=== PATIENT | male | born 2000 | race American Indian/Alaskan Native ===

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

== ENCOUNTER 2022-10-18 23:06 | Inpatient (IN) | payer BC, OTHER ==
--- NOTE | 2022-10-18 23:31 | ED ---
General Adult HPI - General Chief complaint: Psychiatric Symptoms Stated complaint: MENTAL HEALTH Time Seen by Provider: 10/18/22 23:16 Source: EMS Mode of arrival: EMS Limitations: no limitations - History of Present Illness Initial comments: Dictation was produced using [employer] dictation software. please excuse any grammatical, word or spelling errors. Chief Complaint: 21-year-old female presents with suicidal ideation History of Present Illness: 21-year-old male he is seeking treatment for suicidal ideation. He recently had a breakup. Patient apparently had a firearm in his mouth. She states that the firearm belong to his father. The ROS documented in this emergency department record has been reviewed and confirmed by me. Those systems with pertinent positive or negative responses have been documented in the HPI. All other systems are other negative and/or noncontributory. - Related Data Previous Rx's Medication Instructions Recorded Bacitracin Zinc/Polymyxin B 1 applic TOPICAL DAILY #15 gm 06/12/22 [Bacitracin-Polymyxin Ointment] Allergies Allergy/AdvReac Type Severity Reaction Status Date / Time No Known Allergies Allergy Verified 06/12/22 22:36 Review of Systems ROS Statement: Those systems with pertinent positive or pertinent negative responses have been documented in the HPI. ROS Other: All systems not noted in ROS Statement are negative. Past Medical History Past Medical History: No Reported History Additional Past Medical History / Comment(s): sciatica History of Any Multi-Drug Resistant Organisms: None Reported Past Surgical History: No Surgical Hx Reported Past Psychological History: No Psychological Hx Reported Smoking Status: Never smoker Past Alcohol Use History: None Reported Past Drug Use History: None Reported General Exam - General Exam Comments Initial Comments: PHYSICAL EXAM: General Impression: Alert and oriented x3, not in acute distress HEENT: Normocephalic atraumatic, extra-ocular movements intact, pupils equal and reactive to light bilaterally, mucous membranes moist. Cardiovascular: Heart regular rate and rhythm Chest: Able to complete full sentences, no retractions, no tachypnea Abdomen: abdomen soft, non-tender, non-distended, no organomegaly Musculoskeletal: Pulses present and equal in all extremities, no peripheral edema Motor: no focal deficits noted Neurological: CN II-XII grossly intact, no focal motor or sensory deficits noted Skin: Intact with no visualized rashes Psych: Tearful Limitations: no limitations Course Vital Signs 10/18/22 23:08 Temperature 98.7 F Pulse Rate 98 Respiratory 20 Rate Blood Pressure 145/86 O2 Sat by Pulse 99 Oximetry Medical Decision Making - Medical Decision Making Was pt. sent in by a medical professional or institution (, [facility], [employer]ISSIONER, urgent care, hospital, or skilled nursing...) When possible be specific @ -No Did you speak to anyone other than the patient for history (EMS, parent, family, police, friend...)? What history was obtained from this source @ -No Did you review nursing and triage notes (agree or disagree)? Why? @ -I reviewed and agree with nursing and triage notes Were old charts reviewed (outside hosp., previous admission, EMS record, old EKG, old radiological studies, urgent care reports/EKG's, skilled nursing records)? Report findings @ -No old charts were reviewed Differential Diagnosis (chest pain, altered mental status, abdominal pain women, abdominal pain men, vaginal bleeding, musculoskeletal, weakness, fever, dyspnea, syncope, headache, dizziness, GI bleed, back pain, seizure, CVA, palpatations, mental health)? @ -Differential Mental Health: Depression, anxiety, bipolar, psychosis, schizophrenia, borderline personality, situational depression, adjustment disorder, behavioral disorder, brain tumor, malingering, substance abuse, encephalopathy, medication reaction, dementia, hypothyroidism, degenerative neurologic disorder, lupus.... This is not meant to be all-inclusive list EKG interpreted by me (3pts min.). @ -None done X-rays interpreted by me (1pt min.). @ -None done CT interpreted by me (1pt min.). @ -None done U/S interpreted by me (1pt. min.). @ -None done What testing was considered but not performed or refused? (CT, X-rays, U/S, labs)? Why? @ -None What meds were considered but not given or refused? Why? @ -None Did you discuss the management of the patient with other professionals (professionals i.e. SARAH Garibay, [employer] COMMISSIONER, lab, RT, psych nurse, social media marketing specialist, hide and skin fleshing machine operator, teacher, agricultural technical officer, immigration case worker)? Give summary @ -No Was smoking cessation discussed for >3mins.? @ -No Was critical care preformed (if so, how long)? @ -No Were there social determinants of health that impacted care today? How? (Homelessness, low income, unemployed, alcoholism, drug addiction, transportation, low edu. Level, literacy, decrease access to med. care, fci, rehab)? @ -No Was there de-escalation of care discussed even if they declined (Discuss DNR or withdrawal of care, Hospice)? DNR status @ -No What co-morbidities impacted this encounter? (DM, HTN, Smoking, COPD, CAD, Cancer, CVA, ARF, Chemo, Hep., AIDS, mental health diagnosis, sleep apnea, morbid obesity)? @ -None Was patient admitted / discharged? Hospital course, mention meds given and route, prescriptions, significant lab abnormalities, going to OR and other pertinent info. @ -21-year-old male presents to suicidal behavior. Vital signs stable. Patient has no medical complaints. Patient evaluated by emergency psych services will be admitted to inpatient psych Undiagnosed new problem with uncertain prognosis? @ -No Drug Therapy requiring intensive monitoring for toxicity (Heparin, Nitro, Insulin, Cardizem)? @ -No Were any procedures done? @ -No Diagnosis/symptom? Acute, or Chronic, or Acute on Chronic? Uncomplicated (without systemic symptoms) or Complicated (systemic symptoms)? @ -1. Suicidal behavior Side effects of treatment? @ -No Exacerbation, Progression, or Severe Exacerbation? @ -No Poses a threat to life or bodily function? How? (Chest pain, USA, ME, pneumonia, PE, COPD, DKA, ARF, appy, cholecystitis, CVA, Diverticulitis, Homicidal, Suicidal, threat to staff... and all critical care pts) @ -yes Disposition Clinical Impression: Suicidal behavior Disposition: ADMITTED IP TO THIS HOSP Condition: Serious Referrals: Sigifredo Arteaga MD [Primary Care Provider] - 1-2 days Decision Time: 01:32
[2022-10-19] MEDS ORDERED: ACETAMINOPHEN TAB 325 MG TAB PO PRN (03:09)
[2022-10-19] MEDS ORDERED: MAG HYDROX/AL HYDROX/SIMETH 30 ML CUP PO PRN (03:09)
[2022-10-19] MEDS ORDERED: hydrOXYzine HCL 25 MG TAB PO PRN (03:09)
[2022-10-19] MEDS ORDERED: hydrOXYzine HCL 50 MG/ML 1 ML VIAL IM PRN (03:09)
[2022-10-19] MEDS ORDERED: MAGNESIUM HYDROXIDE 2,400 MG/30 ML CUP PO PRN (03:09)
[2022-10-19] MEDS ORDERED: IBUPROFEN 600 MG TAB PO PRN (03:09)
[2022-10-19] MEDS ORDERED: OLANZapine 5 MG TAB PO PRN (03:09)
[2022-10-19] MEDS ORDERED: OLANZapine 10 MG VIAL IM PRN (03:16)
[2022-10-19 07:10] LABS: Basophils # (A) 0.1 k/uL (0-0.2); Basophils % (A) 1 %; Eosinophils # (A) 0.1 k/uL (0-0.7); Eosinophils % (A) 1 %; HCT 46.6 % (39.0-53.0); HGB 15.9 gm/dL (13.0-17.5); Lymphocytes # (A) 1.5 k/uL (1.0-4.8); Lymphocytes % (A) 20 %; MCH 30.3 pg (25.0-35.0); MCV 89.1 fL (80.0-100.0); Mean Platelet Volume 8.7; Monocytes # (A) 0.4 k/uL (0-1.0); Monocytes % (A) 6 %; Neutrophils # (A) 5.3 k/uL (1.3-7.7); Neutrophils % (A) 71 %; Platelet Count 221 k/uL (150-450); RBC 5.23 m/uL (4.30-5.90); RDW 12.8 % (11.5-15.5); WBC 7.5 k/uL (4.0-11.0)
[2022-10-19 08:08] LABS: ALT 24 U/L (4-49); AST 35 U/L (17-59); African American GFR (CKD) >90 (>60 ml/min/1.73 sqM); Albumin 4.5 g/dL (3.5-5.0); Alkaline Phosphatase 60 U/L (38-126); Anion Gap 10 mmol/L; Blood Urea Nitrogen 14 mg/dL (9-20); Calcium 9.2 mg/dL (8.4-10.2); Carbon Dioxide 23 mmol/L (22-30); Chloride 105 mmol/L (98-107); Glucose 94 mg/dL (74-99); Non-African American GFR(CKD) >90 (>60 ml/min/1.73 sqM); Potassium 4.3 mmol/L (3.5-5.1); Sodium 138 mmol/L (137-145); Total Bilirubin 1.2 mg/dL (0.2-1.3); Total Protein 7.1 g/dL (6.3-8.2)
[2022-10-19] MEDS ORDERED: NICOTINE 14MG/24HR PATCH TRANSDERM SCH (09:00)
--- NOTE | 2022-10-19 10:39 | P.HP ---
Psychiatric H&P - . H&P Date: 10/19/22 History & Physical: Allergies Allergy/AdvReac Type Severity Reaction Status Date / Time No Known Allergies Allergy Verified 06/12/22 22:36 Vital Signs Temp 98.7 F 10/19/22 04:37 Pulse 71 10/19/22 04:37 Resp 20 10/19/22 04:37 BP 125/56 10/19/22 04:37 Pulse Ox 99 10/18/22 23:08 FiO2 Intake & Output 10/18/22 10/19/22 10/19/22 18:59 06:59 18:59 Weight 78.7 kg Laboratory Last Values WBC 7.5 k/uL (4.0-11.0) 10/19/22 06:39 RBC 5.23 m/uL (4.30-5.90) 10/19/22 06:39 Hgb 15.9 gm/dL (13.0-17.5) 10/19/22 06:39 Hct 46.6 % (39.0-53.0) 10/19/22 06:39 MCV 89.1 fL (80.0-100.0) 10/19/22 06:39 MCH 30.3 pg (25.0-35.0) 10/19/22 06:39 MCHC 34.0 g/dL (31.0-37.0) 10/19/22 06:39 RDW 12.8 % (11.5-15.5) 10/19/22 06:39 Plt Count 221 k/uL (150-450) 10/19/22 06:39 MPV 8.7 10/19/22 06:39 Neutrophils % 71 % 10/19/22 06:39 Lymphocytes % 20 % 10/19/22 06:39 Monocytes % 6 % 10/19/22 06:39 Eosinophils % 1 % 10/19/22 06:39 Basophils % 1 % 10/19/22 06:39 Neutrophils # 5.3 k/uL (1.3-7.7) 10/19/22 06:39 Lymphocytes # 1.5 k/uL (1.0-4.8) 10/19/22 06:39 Monocytes # 0.4 k/uL (0-1.0) 10/19/22 06:39 Eosinophils # 0.1 k/uL (0-0.7) 10/19/22 06:39 Basophils # 0.1 k/uL (0-0.2) 10/19/22 06:39 Sodium 138 mmol/L (137-145) 10/19/22 06:39 Potassium 4.3 mmol/L (3.5-5.1) 10/19/22 06:39 Chloride 105 mmol/L (98-107) 10/19/22 06:39 Carbon Dioxide 23 mmol/L (22-30) 10/19/22 06:39 Anion Gap 10 mmol/L 10/19/22 06:39 BUN 14 mg/dL (9-20) 10/19/22 06:39 Creatinine 1.02 mg/dL (0.66-1.25) 10/19/22 06:39 Est GFR (CKD-EPI)AfAm >90 (>60 ml/min/1.73 sqM) 10/19/22 06:39 Est GFR (CKD-EPI)NonAf >90 (>60 ml/min/1.73 sqM) 10/19/22 06:39 Glucose 94 mg/dL (74-99) 10/19/22 06:39 Calcium 9.2 mg/dL (8.4-10.2) 10/19/22 06:39 Total Bilirubin 1.2 mg/dL (0.2-1.3) 10/19/22 06:39 AST 35 U/L (17-59) 10/19/22 06:39 ALT 24 U/L (4-49) 10/19/22 06:39 Alkaline Phosphatase 60 U/L (38-126) 10/19/22 06:39 Total Protein 7.1 g/dL (6.3-8.2) 10/19/22 06:39 Albumin 4.5 g/dL (3.5-5.0) 10/19/22 06:39 TSH 2.210 mIU/L (0.465-4.680) 10/19/22 06:39 Coronavirus (PCR) Not Detected (Not Detectd) 10/19/22 00:00 10/19/22 09:24 IDENTIFYING DATA: Patient is a single, employed, 21-year-old male who is presenting with suicidal ideation HPI: Patient was brought into the ED after having been petitioned by a coworker at [facility]. The petition states "I was called by his father that he may be at home trying to harm himself. Upon arrival through the window I saw the patient with gun in his mouth". Per EPS report, stressor included breakup with his girlfriend whom he states has been with someone else. While in the ED, patient reported "I was suicidal tonight and took a gun and put it in my mouth." Patient currently reports having been in a relationship with his girlfriend Elaina for the past one and half years. He states that over the past month, their relationship has been having issues. He says that the father of his girlfriend told the patient to stay away from [place] otherwise that he would contact the fire department to fire the patient from work. Iron says that he has been worried for the past 1 month about the status of the relationship. He says that he has been making attempts to gain her back but he learned last night that she was romantically involved with someone else. He said he wanted to hear from her that she does not love him anymore. As a result, he states that he put a gun in his mouth while on video call with her. He believes that she informed his parents about his actions which resulted in the coworkers checking on him. He says that the safety was on on the gun and says that it was not loaded. He now says that this was an attempt to gain her attention and says that he was not truly intending to kill himself. He says that the gun belongs to his father and he knew how to gain access. He admits to having drank "a little bit "prior to putting the gun in his mouth. Patient currently minimizing his actions and stating that this was done on an impulse. He reports drinking rarely and denies excessive or habitual consumption of alcohol. Patient endorses worrying often about other things. However, this has worsened due to the relationship issues over the past one month. He reports feeling restless, on edge, and anxious. He denies depression and low mood. He reports fair energy and good appetite. He says that he had some trouble falling asleep over the past one-week but otherwise denies issues with sleep. He denies symptoms consistent with a constellation of symptoms of bj. He denies auditory and visual hallucinations, as asked and assessed. He currently denies suicidal ideation and homicidal ideation. PSYCH HX: Therapist: [facility] Past tx: Denies Hospitalizations: Denies NSSI: Denies SA: Denies PMH: Denies chronic medical issues ALLERGIES: NKDA PCP: Dr. Arteaga Head injuries: Denies Seizures: Denies SUBSTANCE HX: Alcohol: Rare 1 coffee daily Denies using other substances SOCIAL/LEGAL HX: He was [place] in [place]. He likes to exercise. His father is a hrbp. He has 1 older brother and 1 sister. 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 Patient appears to have fair hygiene and grooming. Behavior: Patient is seated without any agitated behavior. Speech: Patient's speech is fluent and nonpressured. Mood/Affect: Patient reports their mood is depressed, affect is congruent and tearful Suicidality/Homicidality: Patient denies having any homicidal ideation intent or plan. Denies any suicidal ideations intent or plan Perceptions: Patient denies any visual hallucinations and denies any auditory hallucinations Though content/process: There is no evidence of any delusional thought content and thought process is linear and goal-directed. Memory and concentration: AOX3, grossly intact for the purposes of this session. Can spell "WORLD" backwards Judgment and insight: Poor, impulsive STRENGTHS/WEAKNESSES: Strength is family support. Weakness is emotional reactivity. 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 Patient signed adult voluntary form and medication consent and is placed in patient's chart. -Medications: Discussed medication with patient but patient is currently stating that he does not want to be on any medication because he does not believe in it. We will provide information on Zoloft and Prozac and discuss it further tomorrow -Internal Medicine consult to perform medical evaluation and physical. -SW on board for discharge planning. Encourage patient to participate in groups to work on coping skills. 10/19/22 10:11 10/19/22 10:23
--- NOTE | 2022-10-19 12:18 | P.CONS ---
History of Present Illness - Reason for Consult Medical clearance - History of Present Illness Patient is admitted for suicidal ideation patient denied any medical complaints at this time. REVIEW OF SYSTEMS: CONSTITUTIONAL: No fever, no malaise, no fatigue. HEENT: No recent visual problems or hearing problems. Denied any sore throat. CARDIOVASCULAR: No chest pain, orthopnea, PND, no palpitations, no syncope. PULMONARY: No shortness of breath, no cough, no hemoptysis. GASTROINTESTINAL: No diarrhea, no nausea, no vomiting, no abdominal pain. NEUROLOGICAL: No headaches, no weakness, no numbness. HEMATOLOGICAL: Denies any bleeding or petechiae. GENITOURINARY: Denies any burning micturition, frequency, or urgency. MUSCULOSKELETAL/RHEUMATOLOGICAL: Denies any joint pain, swelling, or any muscle pain. ENDOCRINE: Denies any polyuria or polydipsia. The rest of the 14-point review of systems is negative. PHYSICAL EXAMINATION: GENERAL: The patient is alert and oriented x3, not in any acute distress. Well developed, well nourished. HEENT: Pupils are round and equally reacting to light. EOMI. No scleral icterus. No conjunctival pallor. Normocephalic, atraumatic. No pharyngeal erythema. No thyromegaly. CARDIOVASCULAR: S1 and S2 present. No murmurs, rubs, or gallops. PULMONARY: Chest is clear to auscultation, no wheezing or crackles. ABDOMEN: Soft, nontender, nondistended, normoactive bowel sounds. No palpable organomegaly. MUSCULOSKELETAL: No joint swelling or deformity. EXTREMITIES: No cyanosis, clubbing, or pedal edema. NEUROLOGICAL: Gross neurological examination did not reveal any focal deficits. SKIN: No rashes. Assessment and plan -Depression, suicidal ideation: Management as per primary service -Patient doesn't have any medical problems at this time. Patient is medically stable to stay and psychiatry unit DVT prophylaxis: Past Medical History Past Medical History: No Reported History Additional Past Medical History / Comment(s): sciatica History of Any Multi-Drug Resistant Organisms: None Reported Past Surgical History: No Surgical Hx Reported Past Psychological History: No Psychological Hx Reported Smoking Status: Never smoker Past Alcohol Use History: None Reported Past Drug Use History: None Reported Medications and Allergies Home Medications Medication Instructions Recorded Confirmed Type Bacitracin Zinc/Polymyxin B 1 applic TOPICAL DAILY #15 gm 06/12/22 Rx [Bacitracin-Polymyxin Ointment] Allergies Allergy/AdvReac Type Severity Reaction Status Date / Time No Known Allergies Allergy Verified 06/12/22 22:36 Physical Exam Vitals: Vital Signs Temp Pulse Pulse Resp BP BP Pulse Ox 10/19/22 04:37 98.7 F 71 20 125/56 10/18/22 23:08 98.7 F 98 20 145/86 99 Intake and Output 10/18/22 10/19/22 10/19/22 22:59 06:59 14:59 Other: Weight 78.7 kg Results CBC & Chem 7: 10/19/22 06:39 10/19/22 06:39
[2022-10-19 13:42] LABS: Chol/HDL Ratio 2.17 Ratio; LDL Cholesterol,Calculated 49.1 mg/dL (0.0-131.0)
[2022-10-19 15:55] VITALS: BMI 25.6
[2022-10-20 07:18] VITALS: BP 113/71; PULSE 47; RESP 16; TEMP 97.9
--- NOTE | 2022-10-20 16:07 | P.PN ---
Progress Note - Text Progress Note Date: 10/20/22 Interval History: Patient was seen wandering the hallways and was directable and agreeable to sp kennedy with entry writer in the office. Patient continues to assert that he does not want to be on any medications. However, he says that he spoke with his assistant grocery store manager who came to visit which was helpful. He expresses remorse towards his action and reflects that it was a poor decision. However, patient is noted to be easily frustrated but does not appear to have insight into this. Discussed various options with patient is currently not amenable with any medication. However, he plans [facility]. He says that he just wants to go home to his mother who will be returning home soon. He also states that his father should be home in the next day or so and will be locking up the guns. At this time patient denies any suicidal or homicidal ideation, intent or plan. Patient denies any auditory, visual hallucinations and denies any paranoia or delusions. Patient denies any side effects from the medications and has been compliant with meds. Mental Status Exam: General Appearance: Patient appears to be stated age is alert, directable, and attempts to cooperate. Patient appears to have fair hygiene and grooming. Behavior: Patient is seated without any agitated behavior. Speech: Patient's speech is fluent and nonpressured. Mood/Affect: Patient reports their mood is depressed, affect is congruent Suicidality/Homicidality: Patient denies having any homicidal ideation intent or plan. Denies any suicidal ideations intent or plan Perceptions: Patient denies any visual hallucinations and denies any auditory hallucinations Though content/process: There is no evidence of any delusional thought content and thought process is linear and goal-directed. Memory and concentration: AOX3, grossly intact for the purposes of this session. Can spell "WORLD" backwards Judgment and insight: Improving, impulsive Assessment Adjustment disorder with anxiety Cluster B traits PLAN: -Patient is admitted under voluntary status to MHU for stabilization of psychiatric symptoms and safety. Patient signed adult voluntary form and medication consent and is placed in patient's chart. -Medications: Discussed medication with patient but patient is currently stating that he does not want to be on any medication because he does not believe in it. We will provide information on Zoloft and Prozac and discuss it further tomorrow -Internal Medicine consult to perform medical evaluation and physical. -SW on board for discharge planning. Encourage patient to participate in groups to work on coping skills. Will need the guns to be locked away prior to discharge.
--- NOTE | 2022-10-21 13:01 | P.DS ---
Providers Date of admission: 10/19/22 03:06 Expected date of discharge: 10/21/22 Attending physician: Van Ordaz MD Consults: 10/19/22 22:33 Consult Physician Routine Consulting Provider: Sun Baxter Consult Reason/Comments: h & P medical managment Do you want consulting provider notified?: Already Contacted Primary care physician: Sigifredo Arteaga - Discharge Diagnosis(es) (1) Adjustment disorder with mixed anxiety and depressed mood Current Visit: Yes Status: Acute Priority: High (2) Cluster B personality disorder Current Visit: Yes Status: Acute Priority: High Hospital Course: Admission HPI: Admission note was completed by Dr Clemons "Patient is a single, employed, 21-year-old male who is presenting with suicidal ideation. Patient was brought into the ED after having been petitioned by a coworker at [facility]. The petition states "I was called by his father that he may be at home trying to harm himself. Upon arrival through the window I saw the patient with gun in his mouth". Per EPS report, stressor included breakup with his girlfriend whom he states has been with someone else. While in the ED, patient reported "I was suicidal tonight and took a gun and put it in my mouth." Patient currently reports having been in a relationship with his girlfriend Elaina for the past one and half years. He states that over the past month, their relationship has been having issues. He says that the father of his girlfriend told the patient to stay away from [place] otherwise that he would contact the fire department to fire the patient from work. Iron says that he has been worried for the past 1 month about the status of the relationship. He says that he has been making attempts to gain her back but he learned last night that she was romantically involved with someone else. He said he wanted to hear from her that she does not love him anymore. As a result, he states that he put a gun in his mouth while on video call with her. He believes that she informed his parents about his actions which resulted in the coworkers checking on him. He says that the safety was on on the gun and says that it was not loaded. He now says that this was an attempt to gain her attention and says that he was not truly intending to kill himself. He says that the gun belongs to his father and he knew how to gain access. He admits to having drank "a little bit "prior to putting the gun in his mouth. Patient currently minimizing his actions and stating that this was done on an impulse. He reports drinking rarely and denies excessive or habitual consumption of alcohol. Patient endorses worrying often about other things. However, this has worsened due to the relationship issues over the past one month. He reports feeling restless, on edge, and anxious. He denies depression and low mood. He reports fair energy and good appetite. He says that he had some trouble falling asleep over the past one-week but otherwise denies issues with sleep. He denies symptoms consistent with a constellation of symptoms of jb. He denies auditory and visual hallucinations, as asked and assessed. He currently denies suicidal ideation and homicidal ideation." Hospital course: Upon admission to the unit patient was directable and agreeable to commence treatment and signed adult voluntary form . Patient got along well with other patients on the unit and followed unit protocol. Patient was fairly adamant about not starting any kind of medications and was offered several different options. She claims repeatedly that he would prefer to do outpatient counseling instead and was enjoyed participating in groups. Patient spoke of his stressors and engaged in therapy both group and individual. Patient was also seen by medical team for history and physical exam. Throughout the course of the hospitalization patient gradually improved with regards to mood, anxiety, sleep and became more future oriented with improved insight and judgment. On the day of discharge patient denied any suicidal or homicidal ideations intent or plan denied any auditory or visual hallucinations. Patient endorsed wanting to live for his future and for God. The patient denied any access to guns or weapons and claims that they are locked away. Patient denied any paranoia and did not endorse any delusions. Patient does not have a significant history of substance abuse and was counseled on abstaining from all substances including alcohol and marijuana. Prior to discharge a family meeting will be arranged by social ondina mcgrath to answer any questions and ensure safety upon discharge. Senior Financial Consultant also spoke with patient's mother over the phone [place] to confirm that the home environment is safe now, the guns are locked away and he does not have access to them, no other weapons or in the house. She states that is a supportive environment for him and she will try to get him into counseling and will pick him up today. Mental status exam: General Appearance: Patient appears to be well built, shaved head, stated age is alert, pleasant, and cooperative. Patient is in no acute distress and has improved hygiene and grooming Behavior: Patient is calmly seated without any agitated behavior. Speech: Patient's speech is fluent and nonpressured. Mood/Affect: Patient reports their mood is "good", affect is congruent Suicidality/Homicidality: Patient denies having any suicidal or homicidal ideation intent or plan. Perceptions: Patient denies any auditory or visual hallucinations. Though content/process: There is no evidence of any delusional thought content and thought process is linear and goal-directed. more future oriented Memory and concentration: AOX3, grossly intact for the purposes of this session. Can spell "WORLD" backwards correctly. Judgment and insight: improved with guarded prognosis Impression: Adjustment disorder with mixed depressed mood and anxiety Cluster B personality disorder Plan: -Continue with discharge today as patient has improved and stabilized psychiatrically and is not currently an imminent threat to himself and/or others. -Continue medications: Patient adamantly declined any medications and given multiple options for treatment. Patient claims that he preferred to do outpatient counseling instead. -Patient was counseled on the need for medication compliance and appropriate follow-up at mental health and also primary care for medical issues. Patient verbalized understanding and agreed. -Social work to arrange for and conduct family meeting to ensure safety upon di scharge and answer any questions/concerns. Senior Financial Consultant spoke with patient's mother over the phone as noted above. Social work also to arrange for patients follow up appointments for psychiatric care along with follow up with primary care provider. -Patient counseled on abstaining from recreational drugs and marijuana and alcohol. Was informed/educated on the adverse effects on their physical and ment al health. Patient verbally agreed and understood. -Patient was instructed to return to the hospital or seek immediate medical care if their psychiatric or medical symptoms do worsen or reoccur. Allergies Allergy/AdvReac Type Severity Reaction Status Date / Time No Known Allergies Allergy Verified 06/12/22 22:36 Laboratory Results WBC 7.5 k/uL (4.0-11.0) 10/19/22 06:39 RBC 5.23 m/uL (4.30-5.90) 10/19/22 06:39 Hgb 15.9 gm/dL (13.0-17.5) 10/19/22 06:39 Hct 46.6 % (39.0-53.0) 10/19/22 06:39 MCV 89.1 fL (80.0-100.0) 10/19/22 06:39 MCH 30.3 pg (25.0-35.0) 10/19/22 06:39 MCHC 34.0 g/dL (31.0-37.0) 10/19/22 06:39 RDW 12.8 % (11.5-15.5) 10/19/22 06:39 Plt Count 221 k/uL (150-450) 10/19/22 06:39 MPV 8.7 10/19/22 06:39 Neutrophils % 71 % 10/19/22 06:39 Lymphocytes % 20 % 10/19/22 06:39 Monocytes % 6 % 10/19/22 06:39 Eosinophils % 1 % 10/19/22 06:39 Basophils % 1 % 10/19/22 06:39 Neutrophils # 5.3 k/uL (1.3-7.7) 10/19/22 06:39 Lymphocytes # 1.5 k/uL (1.0-4.8) 10/19/22 06:39 Monocytes # 0.4 k/uL (0-1.0) 10/19/22 06:39 Eosinophils # 0.1 k/uL (0-0.7) 10/19/22 06:39 Basophils # 0.1 k/uL (0-0.2) 10/19/22 06:39 Sodium 138 mmol/L (137-145) 10/19/22 06:39 Potassium 4.3 mmol/L (3.5-5.1) 10/19/22 06:39 Chloride 105 mmol/L (98-107) 10/19/22 06:39 Carbon Dioxide 23 mmol/L (22-30) 10/19/22 06:39 Anion Gap 10 mmol/L 10/19/22 06:39 BUN 14 mg/dL (9-20) 10/19/22 06:39 Creatinine 1.02 mg/dL (0.66-1.25) 10/19/22 06:39 Est GFR (CKD-EPI)AfAm >90 (>60 ml/min/1.73 sqM) 10/19/22 06:39 Est GFR (CKD-EPI)NonAf >90 (>60 ml/min/1.73 sqM) 10/19/22 06:39 Glucose 94 mg/dL (74-99) 10/19/22 06:[address] Glu mg/dL 100 mg/dL 10/19/22 06:39 Hemoglobin A1c 5.1 % (<=6.0) 10/19/22 06:39 Calcium 9.2 mg/dL (8.4-10.2) 10/19/22 06:39 Total Bilirubin 1.2 mg/dL (0.2-1.3) 10/19/22 06:39 AST 35 U/L (17-59) 10/19/22 06:39 ALT 24 U/L (4-49) 10/19/22 06:39 Alkaline Phosphatase 60 U/L (38-126) 10/19/22 06:39 Total Protein 7.1 g/dL (6.3-8.2) 10/19/22 06:39 Albumin 4.5 g/dL (3.5-5.0) 10/19/22 06:39 Triglycerides 59.00 mg/dL (0.00-149.00) 10/19/22 06:39 Cholesterol 113.00 mg/dL (0.00-200.00) 10/19/22 06:39 LDL Cholesterol, Calc 49.1 mg/dL (0.0-131.0) 10/19/22 06:39 VLDL Cholesterol, Calc 11.80 mg/dL (5.00-40.00) 10/19/22 06:39 HDL Cholesterol 52.10 mg/dL (40.00-60.00) 10/19/22 06:39 Cholesterol/HDL Ratio 2.17 Ratio 10/19/22 06:39 TSH 2.210 mIU/L (0.465-4.680) 10/19/22 06:39 Coronavirus (PCR) Not Detected (Not Detectd) 10/19/22 00:00 Vital Signs Temp 97.9 F 10/20/22 07:17 Pulse 47 L 10/20/22 07:17 Resp 16 10/20/22 07:17 BP 113/71 10/20/22 07:17 Pulse Ox 99 10/20/22 07:17 FiO2 Patient Condition at Discharge: Stable Plan - Discharge Summary Discharge Rx Participant: Yes New Discharge Prescriptions: New Ibuprofen [Motrin] 600 mg PO Q6HR PRN tab PRN Reason: Moderate Pain (Scale 4 To 6) Acetaminophen Tab [Tylenol] 650 mg PO Q4HR PRN tab PRN Reason: Mild Pain (Scale 1 To 3) Continue Bacitracin Zinc/Polymyxin B [Bacitracin-Polymyxin Ointment] 1 applic TOPICAL DAILY #15 gm Discharge Medication List Bacitracin Zinc/Polymyxin B [Bacitracin-Polymyxin Ointment] 1 applic TOPICAL DAILY #15 gm 06/12/22 [Rx] Acetaminophen Tab [Tylenol] 650 mg PO Q4HR PRN tab 10/21/22 [Rx] Ibuprofen [Motrin] 600 mg PO Q6HR PRN tab 10/21/22 [Rx] Follow up Appointment(s)/Referral(s): Sigifredo Arteaga MD [Primary Care Provider] - 1-2 days Activity/Diet/Wound Care/Special Instructions: Avoid the use of street drugs and alcohol. Take all medications as prescribed. When you are in need of refills on your medications, please contact your medical provider and/or outpatient psychiatrist to have this done. Please go to scheduled outpatient appointments for aftercare treatment. If symptoms return or become worse, call the crisis line at and/or go to the nearest emergency room for evaluation. Discharge Disposition: HOME SELF-CARE
== END 2022-10-21 15:35 | disposition home or self-care (01) | DRG 882 ==
LOC: EC 23:06 → 3MHU 10-19 03:06
PROVIDERS: ADMIT Psychiatry & Neurology Psychiatry; ATTEND Psychiatry & Neurology Psychiatry
DX: F43.23 Adjustment disorder with mixed anxiety and depressed mood (principal); R45.851 Suicidal ideations; M54.30 Sciatica, unspecified side; F60.89 Other specific personality disorders; Z20.822 Contact with and (suspected) exposure to COVID-19; Z28.311 Partially vaccinated for COVID-19; Z63.0 Problems in relationship with spouse or partner
CPT/HCPCS: 80053; 80061; 82075; 83036; 84443; 85025; 87635; 99285

== ENCOUNTER → 2023-01-03 | Outpatient (CLI) | payer BC ==
--- NOTE | 2023-01-12 16:59 | MR ---
MRI left hip HISTORY: Left hip pain COMPARISON: None. TECHNIQUE: Multiecho multiplanar images of the hips and pelvis were obtained without contrast. FINDINGS: There is no fracture or focal intraosseous abnormality of the left hip or left hemipelvis. There is n o joint effusion. There is no cam deformity to suggest femoral acetabular impingement. Grossly the cartilaginous labrum . There is no trochanteric bursitis. Periarticular soft tissues are unremarkable. IMPRESSION: No significant abnormality seen in the left hip. If there is a strong clinical suspicion for labral t ear then post arthrogram MRI left hip is recommended for further evaluation.
== END | disposition home or self-care (01) ==
LOC: RADMRIMAIN 07:42
PROVIDERS: ATTEND Family Medicine
DX: M79.89 Other specified soft tissue disorders (principal); M25.552 Pain in left hip

== ENCOUNTER 2024-04-28 19:26 | Emergency (ER) | payer BC ==
[2024-04-28 19:54] VITALS: RESP 18; TEMP 97.8
[2024-04-28] MEDS: ONDANSETRON 4 MG/2 ML VIAL IVP STA (20:15)
[2024-04-28] MEDS: SODIUM CHLORIDE 0.9% 1,000 ML IV STA (20:16)
[2024-04-28] MEDS: FAMOTIDINE 20 MG/2 ML VIAL IV STA (20:16)
[2024-04-28] MEDS: SODIUM CHLORIDE 0.9% 500 ML 500 ML IV STA (20:17)
[2024-04-28] MEDS: MORPHINE SULFATE 4 MG/ML SYRINGE IVP STA (20:18)
--- NOTE | 2024-04-28 20:18 | ED ---
Nausea/Vomiting/Diarrhea HPI - General Chief complaint: Nausea/Vomiting/Diarrhea Stated complaint: NVD Time Seen by Provider: 04/28/24 19:55 Source: patient, RN notes reviewed Mode of arrival: ambulatory Limitations: no limitations - History of Present Illness Initial comments: This is a 23-year-old male who presents to the emergency department for abdom inal pain, nausea, and vomiting. States that it started 5 to 6 hours ago. He has some associated diarrhea. Abdominal pain is in the mid to upper abdomen. He did have shrimp on a flight before this began and is unsure if he may have gotten sick from that. Denies any known sick contacts. Has not measured any fevers or chills. MD complaint: nausea, vomiting, abdominal pain - Related Data Previous Rx's Medication Instructions Recorded Bacitracin Zinc/Polymyxin B 1 applic TOPICAL DAILY #15 gm 06/12/22 [Bacitracin-Polymyxin Ointment] Acetaminophen Tab [Tylenol] 650 mg PO Q4HR PRN tab 10/21/22 Ibuprofen [Motrin] 600 mg PO Q6HR PRN tab 10/21/22 Metoclopramide [Reglan] 10 mg PO Q6H PRN #30 tab 04/28/24 Ondansetron Odt [Zofran Odt] 4 mg PO Q8HR PRN #20 tab 04/28/24 Allergies Allergy/AdvReac Type Severity Reaction Status Date / Time No Known Allergies Allergy Verified 04/28/24 19:54 Review of Systems ROS Statement: Those systems with pertinent positive or pertinent negative responses have been documented in the HPI. ROS Other: All systems not noted in ROS Statement are negative. Past Medical History Past Medical History: No Reported History Additional Past Medical History / Comment(s): sciatica History of Any Multi-Drug Resistant Organisms: None Reported Past Surgical History: No Surgical Hx Reported Past Psychological History: No Psychological Hx Reported Smoking Status: Never smoker Past Alcohol Use History: None Reported Past Drug Use History: None Reported General Exam Limitations: no limitations General appearance: alert, in distress Head exam: Present: atraumatic, normocephalic, normal inspection Respiratory exam: Present: normal lung sounds bilaterally. Absent: respiratory distress, wheezes, rales, rhonchi, stridor Cardiovascular Exam: Present: regular rate, normal rhythm, normal heart sounds. Absent: systolic murmur, diastolic murmur, rubs, gallop, clicks GI/Abdominal exam: Present: soft, tenderness (diffuse), normal bowel sounds. Absent: distended Neurological exam: Present: alert, oriented X3, CN II-XII intact Psychiatric exam: Present: normal affect, normal mood Skin exam: Present: warm, dry, intact, normal color. Absent: rash Course Vital Signs 04/28/24 04/28/24 19:51 23:04 Temperature 97.8 F Pulse Rate 77 85 Respiratory 18 18 Rate Blood Pressure 132/89 118/80 O2 Sat by Pulse 100 98 Oximetry Medical Decision Making - Medical Decision Making This is a 23 year old male who presents to the emergency department for nausea and vomiting. Was pt. sent in by a medical professional or institution? @ -No Did you speak to anyone other than the patient for history? @ -No Did you review nursing and triage notes? @ -Yes, and I agree, it is accurate with regards to the patient's symptoms. Were old charts reviewed? @ -No Differential Diagnosis? @ -Differential Nausea and Vomiting: Gastroenteritis, cholecystitis, appendicitis, pancreatitis, migraine, benign positional vertigo, food borne illness, pyelonephritis, irritable bowel syndrome, influenza, Covid, GERD, incarcerated hernia, intestinal obstruction, this is not meant to be an all-inclusive list. EKG interpreted by me (3pts min.)? @ -Not obtained X-rays interpreted by me (1pt min.)? @ -Not obtained CT interpreted by me (1pt min.)? @ -CT scan of the abdomen and pelvis obtained. My interpretation identifies liquid colonic stool. U/S interpreted by me (1pt. min.)? @ -Not obtained What testing was considered but not performed? (CT, X-rays, U/S, labs)? Why? @ -None What meds were considered but not given? Why? @ -None Did you discuss the management of the patient with other professionals? @ -No Did you reconcile home meds? @ -No Was smoking cessation discussed for >3mins.? @ -No Was critical care preformed (if so, how long)? @ -No Were there social determinants of health that impacted care today? How? (H omelessness, low income, unemployed, alcoholism, drug addiction, transportation, low edu. Level, literacy, decrease access to med. care, [facility], rehab)? @ -No Was there de-escalation of care discussed even if they declined? (Discuss DNR or withdrawal of care, Hospice)? @ -No What co-morbidities impacted this encounter? (DM, HTN, Smoking, COPD, CAD, Cancer, CVA, Hep., AIDS, mental health diagnosis, sleep apnea, morbid obesity)? @ -None Was patient admitted / discharged? @ -Discharged. Lab work demonstrates leukocytosis with a white blood cell count of 17.3. Lactic acid 2.8. CT scan of the abdomen and pelvis obtained revealing findings suggestive of mild infectious enterocolitis. Findings reviewed with the patient in that this is likely viral in nature or related to the food he ate. Symptoms well-controlled with IV fluids and Zofran. He did have some mild residual nausea afterwards that was well-controlled with Reglan. He was tolerating oral intake afterwards and felt stable for discharge home. Prescription for Zofran and Reglan provided. Advised he slowly advance his diet as tolerated and remain well-hydrated. Patient discharged home in stable condition. Case discussed with ED attending Dr. Canela. Return precautions reviewed in depth, the patient is instructed to return to the emergency department with any new, worsening, or concerning symptoms. Patient verbalized understanding. Undiagnosed new problem with uncertain prognosis? @ -None Drug Therapy requiring intensive monitoring for toxicity (Heparin, Nitro, Insulin, Cardizem)? @ -None Were any procedures done? @ -None Diagnosis/symptom? @ -Enterocolitis, nausea and vomiting Acute, or Chronic, or Acute on Chronic? @ -Acute Uncomplicated (without systemic symptoms) or Complicated (systemic symptoms)? @ -Uncomplicated Side effects of treatment? @ -None Exacerbation, Progression, or Severe Exacerbation] @ -Not applicable Poses a threat to life or bodily function? @ -No - Lab Data Result diagrams: 04/28/24 20:12 04/28/24 20:12 Lab Results 04/28/24 04/28/24 04/28/24 Range/Units 20:12 20:12 20:12 WBC 17.3 H (3.8-10.6) k/uL RBC 5.80 (4.30-5.90) m/uL Hgb 18.4 H (13.0-17.5) gm/dL Hct 51.5 (39.0-53.0) % MCV 88.7 (80.0-100.0) fL MCH 31.7 (25.0-35.0) pg MCHC 35.8 (31.0-37.0) g/dL RDW 12.7 (11.5-15.5) % Plt Count 190 (150-450) k/uL MPV 8.2 Neutrophils % 92 % Lymphocytes % 2 % Monocytes % 4 % Eosinophils % 1 % Basophils % 0 % Neutrophils # 16.0 H (1.3-7.7) k/uL Lymphocytes # 0.4 L (1.0-4.8) k/uL Monocytes # 0.7 (0-1.0) k/uL Eosinophils # 0.2 (0-0.7) k/uL Basophils # 0.0 (0-0.2) k/uL Sodium 139 (137-145) mmol/L Potassium 3.9 (3.5-5.1) mmol/L Chloride 104 (98-107) mmol/L Carbon Dioxide 21 L (22-30) mmol/L Anion Gap 14 mmol/L BUN 16 (9-20) mg/dL Creatinine 1.11 (0.66-1.25) mg/dL Est GFR (CKD-EPI)AfAm >90 (>60 ml/min/1.73 sqM) Est GFR (CKD-EPI)NonAf >90 (>60 ml/min/1.73 sqM) Glucose 156 H (74-99) mg/dL Plasma Lactic Acid Miguel 2.8 H* (0.7-2.0) mmol/L Calcium 10.5 H (8.4-10.2) mg/dL Magnesium 1.4 L (1.6-2.3) mg/dL Total Bilirubin 1.8 H (0.2-1.3) mg/dL AST 29 (17-59) U/L ALT 19 (4-49) U/L Alkaline Phosphatase 69 (38-126) U/L Total Protein 8.8 H (6.3-8.2) g/dL Albumin 5.8 H (3.5-5.0) g/dL Amylase 68 (30-110) U/L Lipase 60 (23-300) U/L - Radiology Data Radiology results: report reviewed, image reviewed Disposition Clinical Impression: Enterocolitis, Nausea and vomiting Disposition: HOME SELF-CARE Instructions (If sedation given, give patient instructions): Acute Nausea and Vomiting (ED), Acute Diarrhea (ED), Colitis (ED) Additional Instructions: Return to the emergency department with any new, worsening, or concerning symptoms. You can take the Zofran up to every 8 hours as needed for nausea and vomiting. The Reglan can be taken up to every 6 hours for nausea and vomiting. Slowly advance your diet as tolerated and remain well-hydrated. Follow up with your primary care provider in 1-2 days. Prescriptions: Metoclopramide [Reglan] 10 mg PO Q6H PRN #30 tab PRN Reason: Nausea And Vomiting Ondansetron Odt [Zofran Odt] 4 mg PO Q8HR PRN #20 tab PRN Reason: Nausea And Vomiting Is patient prescribed a controlled substance at d/c from ED?: No Referrals: Sigifredo Arteaga MD [Primary Care Provider] - 1-2 days Time of Disposition: 22:34
[2024-04-28 20:19] LABS: Basophils % (A) 0 %; Eosinophils # (A) 0.2 k/uL (0-0.7); Eosinophils % (A) 1 %; HCT 51.5 % (39.0-53.0); HGB 18.4 gm/dL (13.0-17.5); Lymphocytes # (A) 0.4 k/uL (1.0-4.8); Lymphocytes % (A) 2 %; MCH 31.7 pg (25.0-35.0); MCHC 35.8 g/dL (31.0-37.0); MCV 88.7 fL (80.0-100.0); Mean Platelet Volume 8.2; Monocytes # (A) 0.7 k/uL (0-1.0); Monocytes % (A) 4 %; Neutrophils % (A) 92 %; Platelet Count 190 k/uL (150-450); RDW 12.7 % (11.5-15.5); WBC 17.3 k/uL (3.8-10.6)
[2024-04-28 20:27] LABS: ALT 19 U/L (4-49); AST 29 U/L (17-59); African American GFR (CKD) >90 (>60 ml/min/1.73 sqM); Albumin 5.8 g/dL (3.5-5.0); Alkaline Phosphatase 69 U/L (38-126); Amylase 68 U/L (30-110); Anion Gap 14 mmol/L; Blood Urea Nitrogen 16 mg/dL (9-20); Calcium 10.5 mg/dL (8.4-10.2); Carbon Dioxide 21 mmol/L (22-30); Chloride 104 mmol/L (98-107); Glucose 156 mg/dL (74-99); Lipase 60 U/L (23-300); Magnesium 1.4 mg/dL (1.6-2.3); Non-African American GFR(CKD) >90 (>60 ml/min/1.73 sqM); Potassium 3.9 mmol/L (3.5-5.1); Sodium 139 mmol/L (137-145); Total Bilirubin 1.8 mg/dL (0.2-1.3); Total Protein 8.8 g/dL (6.3-8.2)
[2024-04-28] MEDS: METOCLOPRAMIDE 5 MG/ML 2 ML VIAL IVP STA (21:31)
[2024-04-28] MEDS: HYDROmorphone 1 MG/ML 1 ML SYRINGE IVP STA (21:35)
--- NOTE | 2024-04-28 22:04 | CT ---
EXAMINATION TYPE: CT abdomen pelvis w con DATE OF EXAM: 04/28/2024 8:10 PM COMPARISON: None. CLINICAL INDICATION: Male, 23 years old with history of Abdominal pain, acute, nonlocalized; Pt arriv es in [facility] today for nausea, vomiting and diarrhea. TECHNIQUE: Axial CT abdomen pelvis w con;Sagittal and coronal reformats were created on a separate w orkstation. Contrast used:100ML mL of Isovue 300 with IV Contrast, (none if empty) Oral contrast used: without Oral Contrast (none if empty) CT DLP: 830.4 mGycm, Automated exposure control for dose reduction was used. FINDINGS: LOWER CHEST: Unremarkable ABDOMEN LIVER: Unremarkable GALLBLADDER AND BILE DUCTS: Unremarkable. PANCREAS: Unremarkable. SPLEEN: Unremarkable. ADRENAL GLANDS: Unremarkable. KIDNEYS AND URETERS: No evidence of hydronephrosis or renal calculus. The ureters are unremarkable. Retroaortic left renal vein incidentally noted. PELVIS BLADDER: No evidence for wall thickening or mass given limitations of exam. REPRODUCTIVE: Unremarkable. ABDOMEN & PELVIS STOMACH AND BOWEL: A few scattered borderline mildly wall thickened small bowel loops. There is liqui d colonic stool suggesting diarrhea. No significant mesenteric inflammation. No definite secondary fi ndings to suggest acute appendicitis. No evidence of small bowel obstruction. PERITONEUM/RETROPERITONEUM: No evidence of pneumoperitoneum or free fluid. VASCULATURE: No evidence of aortic aneurysm. MUSCULOSKELETAL: No acute osseous abnormalities LYMPH NODES: No gross evidence for lymphadenopathy. SOFT TISSUE/ABDOMINAL WALL: Unremarkable IMPRESSION: Findings which could reflect a mild infectious enterocolitis. [facility], , 04/28/2024 8:57 PM
[2024-04-28] MEDS ORDERED: ONDANSETRON 4 MG ODT STARTER PACK 2 TAB BTL PO STA (22:34)
[2024-04-28 23:06] VITALS: BP 118/80; PULSE 85
== END 2024-04-28 23:09 | disposition home or self-care (01) ==
LOC: EC 19:26
DX: K52.9 Noninfective gastroenteritis and colitis, unspecified (principal)
CPT/HCPCS: 36415; 80053; 82150; 83605; 83690; 83735; 85025; 74177; 99284; 96374; 96375; 96361; J2270; J2765; J2405; J3490; J1171; Q9967; 99285